=== PATIENT | female | born 1995 | race African-American/Black ===

== ENCOUNTER 2017-12-05 12:50 | Outpatient (CLI) | payer MEDICAID, OTHER | END 2017-12-05 12:51 | disposition home or self-care (01) | LOC: BICULT 12:50 | PROVIDERS: ATTEND Nurse Practitioner | DX: R92.8 Other abnormal and inconclusive findings on diagnostic imaging of breast (principal) ==

== ENCOUNTER 2018-06-05 13:50 | Outpatient (CLI) | payer OTHER | END 2018-06-05 13:51 | disposition home or self-care (01) | LOC: BICULT 13:50 | PROVIDERS: ATTEND Nurse Practitioner | DX: R92.8 Other abnormal and inconclusive findings on diagnostic imaging of breast (principal) ==